=== PATIENT | female | born 1940 | race Caucasian/White ===

== ENCOUNTER 2023-05-03 15:58 | Emergency (ER) | payer OTHER, SELFPAY ==
[2023-05-03 16:02] VITALS: BP 143/76
[2023-05-03] MEDS: TYLENOL 650 MG PO (16:07)
[2023-05-03 16:25] LABS: % Basophils 0.4 % (0-2); % Eosinophils 0.1 % (0-6); % Immature Granulocytes 0.3 % (0-0.5); % Lymphocytes 16.5 % (20.5-51.1); % Monocytes 12.4 % (1.7-9.3); % Neutrophils 70.3 % (42.2-75.2); Absolute Lymphocytes 1.5 10^3/uL (1.2-3.4); Absolute Monocytes 1.1 10^3/uL (0.1-0.6); Absolute Neutrophils 6.3 10^3/uL (1.4-6.5); Hematocrit 42.4 % (37.0-47.0); Hemoglobin 14.8 g/dL (12.0-16.0); Mean Corp Hgb Conc. 34.9 g/dL (33.0-37.0); Mean Corpuscular Hgb 30.8 pg (27.0-31.0); Mean Corpuscular Volume 88.1 fL (81.0-99.0); Mean Platelet Volume 9.3 fL (7.4-10.4); Nucleated Red Blood Cells % 0 %; Platelet Count 283 10^3/uL (130-400); Red Blood Cell Count 4.81 10^6/uL (4.20-5.40); Red Cell Dist. Width 12.7 % (11.5-14.5)
[2023-05-03 16:36] LABS: Lactic Acid 1.4 mmol/L (0.7-2.0)
[2023-05-03 16:45] LABS: ALT (SGPT) 43 U/L (0-35); AST (SGOT) 46 U/L (14-36); Albumin 4.6 g/dl (3.5-5.0); Alkaline Phosphatase 80 U/L (38-126); Blood Urea Nitrogen 15 mg/dl (7-17); Calcium 9.5 mg/dl (8.4-10.2); Carbon Dioxide 22 mmol/L (22-30); Chloride 97 mmol/L (98-107); Glucose 192 mg/dl (70-99); Potassium 4.3 mmol/L (3.5-5.1); Sodium 131 mmol/L (135-145); Total Bilirubin 0.8 mg/dl (0.2-1.3); Total Protein 7.6 g/dl (6.3-8.2); eGFR > 60.00
[2023-05-03 16:48] LABS: COVID-19 Antigen Negative (Negative)
--- NOTE | 2023-05-03 20:03 | ED.GENMED ---
History of Present Illness
General
Chief Complaint: Fever
Time Seen by Provider: 05/03/23 19:49
Travel History
Have you had any contact with someone who has COVID-19?: No
Do you have any symptoms of coronavirus? Fever > 100 degrees, chills, cough, shortness of breath, sore throat, loss of taste or smell, muscle aches, or headache?: No
History of Present Illness
History of Present Illness:
82-year-old female with history of diet-controlled diabetes and hyperlipidemia presents to the emergency department for evaluation of generalized weakness and malaise x several days. She has IBS and reports having chronic diarrhea, uncertain how
long this has truly been going on. Noted to have a fever today. Minimal coughing, no SOB, no CP. No meds taken prior to arrival.
Review of Systems
Review of Systems
Allergies reviewed?: Yes
All Other Systems: ROS reviewed and negative except as documented in HPI and ROS
Phy Exam
Physical Exam
Physical Exam:
GEN: Well appearing, NAD, WDWN
HEENT: Oral mucosa moist, no scleral icterus
Cardiac: Regular rate and rhythm, no murmurs
Lung: No respiratory distress, no tachypnea, lungs clear to auscultation
MSK: No gross deformity or injuries
Skin: Good color, no pallor or jaundice, no rashes
Neuro: AO x3, moves all extremities freely
Psych: Calm, cooperative
Course
Orders/Labs/Results
Orders:
Orders
05/03/23 16:06
Acetaminophen [Tylenol] 650 mg .ROUTE .STK-MED ONE
05/03/23 16:07
Acetaminophen [Tylenol] 650 mg PO NOW STA
05/03/23 16:18
COVID-19 Antigen Urgent
Source: Nasal Swab
Complete Blood Count/With Diff Urgent
Comprehensive Metabolic Panel Urgent
Lactic Acid Urgent
Blood Culture Urgent
MLE Source: Blood/Venous
Specimen Description:
Influenza A+B Rapid Molecular Urgent
MEL Source: Nasal Swab
Specimen Description:
05/03/23 20:02
0.9% Sodium Chloride 1000 ml [Nss] 1,000 ml IV BOLUS
Abnormal Lab Results
05/03/23
16:18
Absolute Monos (auto) 1.1 H 10^3/uL
(0.1-0.6)
Lymphocytes % 16.5 L %
(20.5-51.1)
Monocytes % 12.4 H %
(1.7-9.3)
Sodium 131 L mmol/L
(135-145)
Chloride 97 L mmol/L
(98-107)
Glucose 192 H mg/dl
(70-99)
AST 46 H U/L
(14-36)
ALT 43 H U/L
(0-35)
05/03/23 16:18
05/03/23 16:18
Vital Signs
Initial and Last Documented VS:
Initial Vital Signs
Temp Pulse Resp BP Pulse Ox
101.6 F H 112 18 143/76 92
05/03/23 16:02 05/03/23 16:02 05/03/23 16:02 05/03/23 16:02 05/03/23 16:02
Last Documented Vital Signs
Temp Pulse Resp BP Pulse Ox
99.8 F 88 18 122/71 92
05/03/23 21:26 05/03/23 20:14 05/03/23 21:26 05/03/23 21:00 05/03/23 21:00
MDM/Problems Addressed
MDM/Problems Addressed:
Patient clinically well-appearing and her labs are reassuring. She tested positive for influenza. Onset of symptoms is not clearly within the past 48 hours to initiate antiviral therapy. She was given 1 L normal saline for rehydration. On my
evaluation the patient states she is feeling quite well and is suitable for discharge to home. Lungs are clear, no indication for chest x-ray to evaluate for pneumonia
*Critical Care Note
Total Time (30-74mins, 75-104mins- exclusive of procedures): Not Applicable
ED Attending Note
-
Portions of this chart may have been created with voice recognition software.� Occasional wrong word or��sound alike� substitutions may have occurred due to the inherent limitations of voice recognition software.
Discharge Plan
Departure
Patient Disposition: Home (Routine Discharge)
Date of Disposition: 05/03/23
Time of Disposition: 20:58
Patient with high blood pressure during this ER visit?: No
Discharge Problem:
Influenza A
Instructions: Flu, Adult (DC)
Prescriptions:
No Action
clindamycin HCl 300 MG capsule
300 mg PO Q6 Qty: 40 0RF
Interventions
Interventions:
*Risk Screen - Suicide Last Done: 05/03/23 16:02
*General Assessment Last Done: 05/03/23 16:02
*Neglect/Abuse Screening Last Done: 05/03/23 16:02
ED- Fall Risk Assessment Last Done: 05/03/23 20:10
*ED COVID-19 Vaccine History Last Done: 05/03/23 16:02
*Nursing Disposition Last Done: 05/03/23 21:26
ED- Neurological Assessment Last Done: 05/03/23 20:10
ED-Skin Assessment Last Done: 05/03/23 20:10
Discharge Date and Time
Discharge Date/Time: 05/03/23 21:27
[2023-05-03] MEDS: NSS 1000 IV (20:09)
[2023-05-03 20:15] VITALS: BP 122/59
[2023-05-03 21:00] VITALS: BP 122/71
== END 2023-05-03 21:27 | disposition home or self-care (01) ==
LOC: EMR 15:58
PROVIDERS: Emergency Medicine; EMERGENCY PHYSICIAN Student in an Organized Health Care Education/Training Program; FAMILY PHYSICIAN Internal Medicine Geriatric Medicine
DX: J10.1 Influenza due to other identified influenza virus with other respiratory manifestations (principal); Z11.52 Encounter for screening for COVID-19
CPT/HCPCS: 99284; 96360; 80053; 83605; 85025; 87040; 87502; 87811

== ENCOUNTER 2023-08-24 12:40 | Emergency (ER) | payer OTHER, SELFPAY ==
[2023-08-24 12:46] VITALS: BP 139/77
[2023-08-24 13:30] VITALS: BMI 32.4
--- NOTE | 2023-08-24 13:35 | ED.GENMED ---
History of Present Illness
General
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
Source: patient
Exam Limitations: none
Time Seen by Provider: 08/24/23 13:20
History of Present Illness
History of Present Illness:
82 year old female presents with chills and urinary frequency onset last evening. No vomiting. No pain. History of NIDDM. Blood sugars have been controlled. No other complaints at this time.
Phy Exam
Physical Exam
Physical Exam:
General: Well appearing female NAD
HEENT: NC/AT
Heart: RRR, no murmurs
Lungs: CTA bilaterally
ABd: soft, nontender, nondistended, No CVA tednerness
Ext: no cyanosis or edema
skin: Warm, no rashes
Course
Orders/Labs/Results
Orders:
Orders
08/24/23 13:28
Urinalysis Reflex To Culture Urgent
Date Specimen was Collected: 08/24/23
Time Specimen was Collected: 13:21
Urine Microscopic Reflex Cult Urgent
Abnormal Lab Results
08/24/23
13:28
Leukocyte Esterase Rfl Trace A
(Negative)
Urine Bacteria (Reflex) Few A
(Negative)
Vital Signs
Initial and Last Documented VS:
Initial Vital Signs
Temp Pulse Resp BP Pulse Ox
97.8 F 89 18 139/77 96
08/24/23 12:46 08/24/23 12:46 08/24/23 12:46 08/24/23 12:46 08/24/23 12:46
Last Documented Vital Signs
Temp Pulse Resp BP Pulse Ox
97.8 F 89 18 139/77 96
08/24/23 12:46 08/24/23 12:46 08/24/23 12:46 08/24/23 12:46 08/24/23 12:46
MDM/Problems Addressed
Differential Diagnosis Includes:
Urinary frequency. Considered UTI. No pain to suggest kidney stone. Patient stable nontoxic no fever here. Do not suspect pyelonephritis
Abdominal exam benign considered imaging but not indicated at this time
Urinalysis
*Critical Care Note
Total Time (30-74mins, 75-104mins- exclusive of procedures): Not Applicable
Update Note
Update Note:
Urinalysis with leukocytes and bacteria. Patient has significant urinary symptoms. Will treat with Omnicef. Culture pending. Patient stable nontoxic no indication for further intervention.
ED Attending Note
-
Portions of this chart may have been created with voice recognition software.� Occasional wrong word or��sound alike� substitutions may have occurred due to the inherent limitations of voice recognition software.
Discharge Plan
Departure
Patient Disposition: Home (Routine Discharge)
Date of Disposition: 08/24/23
Time of Disposition: 14:44
Patient with high blood pressure during this ER visit?: No
Discharge Problem:
Acute UTI
Instructions: Urinary Tract Infection, Adult (DC)
Prescriptions:
New
cefdinir 300 mg capsule
300 mg PO BID Qty: 14 0RF
No Action
clindamycin HCl 300 MG capsule
300 mg PO Q6 Qty: 40 0RF
Referrals:
Harjeet Zacarias MD [Family Provider] -
Activity Restrictions/Additional Instructions:
Drink plenty fluids. Take antibiotics as directed. Return if worse otherwise follow-up with family doctor
Interventions
Interventions:
*Risk Screen - Suicide Last Done: 08/24/23 12:46
*General Assessment Last Done: 08/24/23 12:46
*Neglect/Abuse Screening Last Done: 08/24/23 12:46
ED-Female Genitourinary Assessment Last Done: 08/24/23 13:30
Discharge Date and Time
Print Language: ROMANIAN
[2023-08-24 13:36] LABS: Urine Albumin Negative (Neg - Trace); Urine Bilirubin Negative (Negative); Urine Character Clear (Clear); Urine Color Yellow; Urine Glucose Negative (Negative); Urine Ketone Negative (Negative); Urine Leukocyte Trace (Negative); Urine Nitrite Negative (Negative); Urine Occult Blood Negative (Negative); Urine Urobilinogen Negative (Neg - 1+)
[2023-08-24 13:45] LABS: Urine Red Blood Cell 0-2 /HPF (0-2)
[2023-08-24 13:46] LABS: Urine Bacteria Few (Negative)
== END 2023-08-24 14:52 | disposition home or self-care (01) ==
LOC: EMR 12:40
PROVIDERS: Physician Assistant; EMERGENCY PHYSICIAN Emergency Medicine; FAMILY PHYSICIAN Internal Medicine Geriatric Medicine
DX: N39.0 Urinary tract infection, site not specified (principal); E11.9 Type 2 diabetes mellitus without complications
CPT/HCPCS: 99283; 81003; 81015

== ENCOUNTER 2023-08-25 17:26 | Emergency (ER) | payer OTHER, SELFPAY ==
[2023-08-25 17:27] VITALS: BP 138/75
--- NOTE | 2023-08-25 18:11 | ED.GENMED ---
History of Present Illness
General
Chief Complaint: Allergic Reaction
Source: patient
Exam Limitations: none
Time Seen by Provider: 08/25/23 18:04
Nursing documentation reviewed up to this point in time: agreed with
History of Present Illness
History of Present Illness:
Patient is a 82-year-old female with past medical history of early diabetes managed with diet, hyperlipidemia presenting emergency department today with concerns of a reaction to the medication. Patient states that she was seen in our ER yesterday
because she was having urinary frequency. Patient at that time was diagnosed with a UTI and was started on cefdinir. Patient has no fevers or chills or nausea or vomiting, no flank pain, no abdominal pain. Patient denies any blood in her urine.
Patient states that today, her urinary symptoms have resolved. Patient states that she had 2 doses of her cefdinir yesterday and took her next dose today and about 2 hours later, she started to experience hives on her hands bilaterally. Patient
states that this was associated with some itching and paresthesias. Patient states that the itching feeling has resolved and the hives have mainly resolved other than a few while she spots on her hands. Patient denies any tongue swelling, lip
swelling, Trouble breathing, chest pain, shortness of breath, abdominal pain. Patient denies any bug bites, any new detergents, hand sanitizers, lotions, any new environmental exposures. Patient believes she may be having reaction to cefdinir.
Patient tolerated this in the past. Patient denies flank pain. Patient states the rash and her symptoms have largely resolved but she went to come to emergency department to be evaluated
Review of Systems
Review of Systems
All Other Systems: ROS reviewed and negative except as documented in HPI and ROS
Phy Exam
Physical Exam
Physical Exam:
General: Patient is well appearing and in no acute distress; non-toxic
Skin: Warm and dry, there is mild urticaria rash covering a small portion of the anterior surface of the palms bilaterally
Head: Normocephalic, atraumatic
Eyes: Sclera non-icteric. EOMs intact.
Cardiac: Regular rate
Pulm: Normal respiratory effort
Abdomen: No abdominal tenderness to palpation
Neuro: CN II-XII intact, no focal neurologic deficits.
Psychiatric: Appropriate mood and affect.
Course
Orders/Labs/Results
Orders:
Orders
08/25/23 18:50
Sulfamethox./Trimethoprim Ds [Bactrim Ds 800 mg/160 mg] 1 tablet PO NOW STA
Vital Signs
Initial and Last Documented VS:
Initial Vital Signs
Temp Pulse Resp BP Pulse Ox
99.8 F 96 18 138/75 96
08/25/23 17:27 08/25/23 17:27 08/25/23 17:27 08/25/23 17:27 08/25/23 17:27
Last Documented Vital Signs
Temp Pulse Resp BP Pulse Ox
99.8 F 96 18 138/75 96
08/25/23 17:27 08/25/23 17:27 08/25/23 17:27 08/25/23 17:27 08/25/23 17:27
MDM/Problems Addressed
Differential Diagnosis Includes:
Differentials include medication reaction, contact dermatitis, urinary tract infection, cellulitis,
MDM/Problems Addressed:
Rash, UTI:
Patient is a 82-year-old female with past medical history of early diabetes managed with diet, hyperlipidemia presenting emergency department today with concerns of a reaction to the medication. Patient took her second day dosing over cefdinir
today when 2 hours later, she started to develop urticaria on her bilateral palms. Patient states that after some time this subsided and now she has only a very mild rash is not itchy or painful. Patient denies any new environmental triggers or
contact with anything new. Patient denies any fevers or chills. Patient states her urinary tract infection symptoms have largely resolved but she is not on a day 2 of cefdinir. Considering the timing of the antibiotic with her symptoms, I suspect
is likely reaction to medication. Patient was switched to Bactrim which she tolerated well in the past. Patient states that she is going to call her primary tomorrow for follow-up. We discussed return precautions. Patient stable for discharge.
Chronic conditions affecting care:
Hyperlipidemia, diabetes
Acute Exacerbation and/or Progression of Chronic Illness:
n/a
*Pulse Oximetry
Patient hypoxic: no
*Critical Care Note
Total Time (30-74mins, 75-104mins- exclusive of procedures): Not Applicable
Data Reviewed
Review of Other/Old Records Reveals: Records (Reviewed most recent ER physician documentation) and Discharge Summary (Discharge summary to review)
Source: patient and records
Patient Management
Escalation/DeEscalation of care consider admission/obs:
Patient stable for discharge. Discussed this case with my attending Dr. Guardado.
ED Attending Note
-
Portions of this chart may have been created with voice recognition software.� Occasional wrong word or��sound alike� substitutions may have occurred due to the inherent limitations of voice recognition software.
Discharge Plan
Departure
Patient Disposition: Home (Routine Discharge)
Date of Disposition: 08/25/23
Time of Disposition: 18:49
Patient with high blood pressure during this ER visit?: Yes
Condition: Good
Discharge Problem:
Medication reaction, Urinary tract infection
Prescriptions:
New
sulfamethoxazole-trimethoprim [Bactrim DS] 800-160 mg tablet
1 tab PO BID 3 Days Qty: 6 0RF
No Action
clindamycin HCl 300 MG capsule
300 mg PO Q6 Qty: 40 0RF
cefdinir 300 mg capsule
300 mg PO BID Qty: 14 0RF
Activity Restrictions/Additional Instructions:
Starting tomorrow, please take one tablet of Bactrim twice daily for 3 days.
As discussed, please follow-up with your primary care provider in 1 week.
Please return emergency department should you experience chest pain, shortness of breath, lip swelling, tongue swelling, abdominal pain, recurrence of rashes, or any other concerning signs or symptoms.
Interventions
Interventions:
*Nursing Disposition Last Done: 08/25/23 19:15
ED- Cardiac Assessment Last Done: 08/25/23 19:14
ED- Pulmonary Assessment Last Done: 08/25/23 19:14
ED-Skin Assessment Last Done: 08/25/23 19:14
Discharge Date and Time
Discharge Date/Time: 08/25/23 19:17
Print Language: BENGALI
[2023-08-25] MEDS: BACTRIM DS 800 MG/160 MG 1 TABLET PO (19:06)
== END 2023-08-25 19:17 | disposition home or self-care (01) ==
LOC: EMR 17:26
PROVIDERS: EMERGENCY PHYSICIAN Emergency Medicine; FAMILY PHYSICIAN Internal Medicine Geriatric Medicine
DX: L50.9 Urticaria, unspecified (principal); T36.1X5A Adverse effect of cephalosporins and other beta-lactam antibiotics, initial encounter; N39.0 Urinary tract infection, site not specified; E11.9 Type 2 diabetes mellitus without complications; E78.5 Hyperlipidemia, unspecified; E03.0 Congenital hypothyroidism with diffuse goiter
CPT/HCPCS: 99283

== ENCOUNTER → 2023-11-14 14:06 | Outpatient (REF) | payer OTHER, SELFPAY | LOC: WDC 14:06 | PROVIDERS: ATTENDING PHYSICIAN Obstetrics & Gynecology; FAMILY PHYSICIAN Internal Medicine Geriatric Medicine | DX: Z12.31 Encounter for screening mammogram for malignant neoplasm of breast (principal) | CPT/HCPCS: 77063; 77067 ==

== ENCOUNTER → 2024-03-28 14:12 | Outpatient (REF) | payer OTHER, SELFPAY | LOC: RAD 14:12 | PROVIDERS: ATTENDING PHYSICIAN Obstetrics & Gynecology; FAMILY PHYSICIAN Internal Medicine Geriatric Medicine | DX: Z78.0 Asymptomatic menopausal state (principal) | CPT/HCPCS: 77080 ==

== ENCOUNTER → 2024-05-27 16:55 | Outpatient (REF) | payer OTHER, SELFPAY | LOC: RCS 16:55 | PROVIDERS: ATTENDING PHYSICIAN Internal Medicine Geriatric Medicine | DX: I10 Essential (primary) hypertension (principal); M54.16 Radiculopathy, lumbar region; E78.2 Mixed hyperlipidemia; E78.00 Pure hypercholesterolemia, unspecified; N39.0 Urinary tract infection, site not specified; R73.01 Impaired fasting glucose; K58.9 Irritable bowel syndrome, unspecified; G47.30 Sleep apnea, unspecified; R26.89 Other abnormalities of gait and mobility; E11.9 Type 2 diabetes mellitus without complications; E55.9 Vitamin D deficiency, unspecified; Z13.89 Encounter for screening for other disorder; R01.1 Cardiac murmur, unspecified | CPT/HCPCS: 93306 ==

== ENCOUNTER → 2024-12-26 14:24 | Outpatient (REF) | payer OTHER, SELFPAY | LOC: WDC 14:24 | PROVIDERS: ATTENDING PHYSICIAN Obstetrics & Gynecology; FAMILY PHYSICIAN Internal Medicine Geriatric Medicine | DX: Z12.31 Encounter for screening mammogram for malignant neoplasm of breast (principal) | CPT/HCPCS: 77063; 77067 ==